=== PATIENT | male | born 1950 | race Caucasian/White ===

== ENCOUNTER 2016-11-18 09:41 | Outpatient (CLI) | payer OTHER ==
--- NOTE | 2016-11-18 10:17 | DI ---
Exam: Three x-rays of the cervical spine. Comparison: None available. Reason for exam: Neck pain with injury. FINDINGS: Multilevel degenerative disease is seen with anterior osteophyte formation most notably a t C4-5 and C5-6 with intervertebral body disc space height loss. No evidence of acute fracture or l isthesis. There is straightening of the cervical lordosis. The prevertebral soft tissues are withi n normal limits of size. Impression: 1. No acute fracture or listhesis in the cervical spine. 2. Moderate multilevel degenerative disease with osteophyte formation and intervertebral body disc space height loss.
--- NOTE | 2016-11-18 10:21 | DI ---
EXAM: Right shoulder three views HISTORY: Shoulder pain without injury COMPARISON: None FINDINGS: No fracture or dislocation. Mild osteoarthritis acromioclavicular joint with joint space narrowing osteophyte formation. Glenohumeral joint appears normal. No focal soft tissue abnormality . Visualized portion of the chest is normal. IMPERSSION: 1. No fracture or dislocation. 2. Mild osteoarthritis acromioclavicular joint.
== END 2016-11-18 09:42 | disposition home or self-care (01) ==
LOC: RAD 09:41
PROVIDERS: ATTEND Family Medicine
DX: M25.511 Pain in right shoulder (principal); M54.2 Cervicalgia